=== PATIENT | female | born 1980 | race Caucasian/White ===

== ENCOUNTER 2017-12-03 02:45 | Inpatient (IN) | payer BC ==
[2017-12-03] MEDS: LACTATED RINGER'S 1,000 ML IV ×4 (03:53→17:20)
[2017-12-03] MEDS ORDERED: LIDOCAINE 1% (MPF) 30 ML INJ INJ (04:00)
[2017-12-03] MEDS ORDERED: OXYTOCIN 30 UNITS/LR 500 ML IV ×2 (04:00→14:30)
[2017-12-03] MEDS ORDERED: METHYLERGONOVINE 0.2 MG INJ IM ×2 (04:00→14:30)
[2017-12-03] MEDS ORDERED: CARBOPROST 250 MCG INJ IM ×2 (04:00→14:30)
[2017-12-03] MEDS ORDERED: MISOPROSTOL 200 MCG TAB PR ×2 (04:00→14:30)
[2017-12-03] MEDS ORDERED: BUTORPHANOL 2 MG INJ IV (04:00)
[2017-12-03 04:04] LABS: ADD MAN DIFF? NO
[2017-12-03 04:08] LABS: BASOPHILS % 0.3 % (0.0-2.0); EOSINOPHILS % 0.2 % (0.0-7.0); HEMATOCRIT 40.2 % (37.0-47.0); HEMOGLOBIN 14.3 g/dl (12.0-16.0); LYMPHOCYTES # 1.8 10^3/ul (0.8-2.9); LYMPHOCYTES % 14.2 % (15.0-51.0); MEAN CORPUSCULAR HEMOGLOBIN 33.4 pg (29.0-33.0); MEAN CORPUSCULAR HGB CONC 35.6 g/dl (32.0-37.0); MEAN CORPUSCULAR VOLUME 93.9 fl (82.0-101.0); MONOCYTE # 0.8 10^3/ul (0.3-0.9); MONOCYTES % 6.2 % (0.0-11.0); NEUTROPHIL # 10.1 10^3/ul (1.6-7.5); NEUTROPHILS % 78.6 % (39.0-77.0); PLATELET COUNT 173 10^3/UL (140-415); RED BLOOD COUNT 4.28 10^6/ul (4.20-5.40)
[2017-12-03 04:08] LABS: WHITE BLOOD COUNT 12.9 10^3/ul (4.8-10.8)
[2017-12-03 04:48] LABS: INR 0.75; PROTIME 10.6 Sec (11.9-14.9); PT RATIO 0.8
[2017-12-03 04:49] LABS: PARTIAL THROMBOPLASTIN TIME 25.8 Sec (25.0-35.0)
[2017-12-03] MEDS: AMPICILLIN 2 GM/NS (PMX) 100 ML IV (04:52)
[2017-12-03 04:57] LABS: HEPATITIS B SURFACE ANTIGEN NEGATIVE (NEGATIVE)
[2017-12-03] MEDS ORDERED: FENTAnyl 2MCG/ML-ROPIV 0.2% 100 ML (04:57)
[2017-12-03 05:23] LABS: HIV 1&2 ANTIBODY NEGATIVE (NEGATIVE)
[2017-12-03] MEDS ORDERED: NALOXONE (0.4 MG/ML) INJ IV (05:30)
[2017-12-03] MEDS ORDERED: ONDANSETRON 4 MG INJ IV (05:30)
[2017-12-03] MEDS ORDERED: DIPHENHYDRAMINE 50 MG INJ IV (05:30)
[2017-12-03] MEDS: AMPICILLIN 1 GM/NS (PMX) 50 ML IV (08:28)
[2017-12-03] MEDS: MINERAL OIL LIGHT 10 ML VIAL TOP (12:00)
[2017-12-03] MEDS: FENTAnyl 2MCG/ML-ROPIV 0.2% 100 ML BAG EPI (13:05)
[2017-12-03] MEDS: IBUPROFEN 600 MG TAB PO ×2 (13:36→17:25)
[2017-12-03] MEDS: OXYTOCIN 30 UNITS/LR 500 ML IV ×2 (13:41)
[2017-12-03] MEDS ORDERED: OXYCODONE/ASPIRIN (4.88/325) TAB PO (14:30)
[2017-12-03] MEDS ORDERED: ZOLPIDEM 5 MG TAB PO (14:30)
[2017-12-03] MEDS: LANOLIN 7 GM TUBE TOP (17:25)
[2017-12-03] MEDS: BENZOCAINE 20% 56 ML SPRAY TOP (17:25)
[2017-12-03] MEDS: WITCH HAZEL/GLYCERIN PAD PR (17:26)
[2017-12-03] MEDS: SENNA/DOCUSATE NA (8.6MG/50MG) TAB PO (21:57)
[2017-12-03] MEDS: OXYCODONE/ASPIRIN (4.88/325) TAB PO (22:05)
[2017-12-03 23:16] LABS: RAPID PLASMA REAGIN NONREACTIVE (NR)
[2017-12-04] MEDS: IBUPROFEN 600 MG TAB PO ×4 (00:04→18:02)
[2017-12-04] MEDS: LACTATED RINGER'S 1,000 ML IV (01:30)
[2017-12-04] MEDS: OXYCODONE/ASPIRIN (4.88/325) TAB PO ×3 (03:14→22:44)
[2017-12-04] MEDS: SENNA/DOCUSATE NA (8.6MG/50MG) TAB PO ×2 (08:36→22:43)
[2017-12-04 10:13] LABS: ADD MAN DIFF? NO
[2017-12-04 10:18] LABS: BASOPHILS % 0.2 % (0.0-2.0); EOSINOPHILS # 0.1 10^3/ul (0.0-0.5); EOSINOPHILS % 0.7 % (0.0-7.0); HEMATOCRIT 34.1 % (37.0-47.0); HEMOGLOBIN 11.7 g/dl (12.0-16.0); LYMPHOCYTES # 1.6 10^3/ul (0.8-2.9); LYMPHOCYTES % 14.5 % (15.0-51.0); MEAN CORPUSCULAR HEMOGLOBIN 33.1 pg (29.0-33.0); MEAN CORPUSCULAR HGB CONC 34.3 g/dl (32.0-37.0); MEAN CORPUSCULAR VOLUME 96.6 fl (82.0-101.0); MEAN PLATELET VOLUME 9.9 fl (7.4-10.4); MONOCYTE # 0.5 10^3/ul (0.3-0.9); MONOCYTES % 4.3 % (0.0-11.0); NEUTROPHILS % 79.7 % (39.0-77.0); PLATELET COUNT 135 10^3/UL (140-415); RED BLOOD COUNT 3.53 10^6/ul (4.20-5.40); RED CELL DISTRIBUTION WIDTH 13.3 % (11.5-14.5)
[2017-12-04 10:18] LABS: WHITE BLOOD COUNT 11.3 10^3/ul (4.8-10.8)
[2017-12-05] MEDS: IBUPROFEN 600 MG TAB PO ×2 (06:09)
[2017-12-05] MEDS: OXYCODONE/ASPIRIN (4.88/325) TAB PO (08:32)
[2017-12-05] MEDS: SENNA/DOCUSATE NA (8.6MG/50MG) TAB PO (08:32)
[2017-12-05] MEDS: DIPHTH/TET/ACEL PERTUSS (ADULT) 0.5 ML VIAL IM* (08:32)
[2017-12-06 13:32] LABS: RUBELLA ANTIBODY - IGM <20.00 AU/mL
== END 2017-12-05 12:25 | disposition home or self-care (01) | DRG 775 ==
LOC: OBT 02:45 → L-D 02:45 → OBT 03:15 → L-D 03:15 → PP1 14:45
PROC: 10E0XZZ Delivery of Products of Conception, External Approach (ICD-10-PCS; principal; 2017-12-03)
PROC: 0HQ9XZZ Repair Perineum Skin, External Approach (ICD-10-PCS; 2017-12-03)
DX: O48.0 Post-term pregnancy (principal); O99.824 Streptococcus B carrier state complicating childbirth; O70.0 First degree perineal laceration during delivery; Z3A.40 40 weeks gestation of pregnancy; Z37.0 Single live birth
CPT/HCPCS: 62319; 85025; 85610; 85730; 86592; 86703; 86762; 86850; 86900; 86901; 87340; 99464

== ENCOUNTER 2018-03-21 10:48 | Day surgery (SDC) | payer OTHER, BC ==
[2018-03-21] MEDS ORDERED: MIDAZOLAM 1 MG/ML 2 ML INJ (12:23)
[2018-03-21] MEDS ORDERED: FENTAnyl 50 MCG/ML VIAL (12:30)
[2018-03-21] MEDS ORDERED: BUPIVACAINE 0.5%/EPI (SDV) 30 ML INJ (12:33)
[2018-03-21] MEDS ORDERED: LABETALOL HCL 20MG INJ (12:37)
[2018-03-21] MEDS ORDERED: CEFAZOLIN 1 GM INJ (12:47)
[2018-03-21] MEDS ORDERED: DEXAMETHASONE 4 MG/ML 1 ML INJ (12:48)
[2018-03-21] MEDS ORDERED: ACETAMINOPHEN 1000MG/100ML IV 100 ML (12:48)
[2018-03-21] MEDS ORDERED: ROCURONIUM 50 MG INJ (12:48)
[2018-03-21] MEDS ORDERED: ONDANSETRON 4 MG INJ (12:48)
[2018-03-21] MEDS ORDERED: LIDOCAINE 2% (SDV) 5 ML INJ (12:48)
[2018-03-21] MEDS ORDERED: PROPOFOL 20 ML (12:48)
[2018-03-21] MEDS ORDERED: KETOROLAC 30 MG INJ (12:50)
[2018-03-21] MEDS ORDERED: SUGAMMADEX SODIUM 200 MG/2 ML VIAL IV (12:51)
[2018-03-21] MEDS: BUPIVACAINE 0.5% (MPF) 30 ML INJ INJ (13:01)
[2018-03-21] MEDS ORDERED: FENTAnyl 50 MCG/ML VIAL IV ×2 (13:30)
[2018-03-21] MEDS ORDERED: MIDAZOLAM 1 MG/ML 2 ML INJ IV (13:30)
[2018-03-21] MEDS ORDERED: EPHEDrine SULFATE 50 MG/5 ML SYG IV (13:30)
[2018-03-21] MEDS ORDERED: DIPHENHYDRAMINE 50 MG INJ IV (13:30)
[2018-03-21] MEDS ORDERED: HYDROmorphONE 1 MG/5 ML IV SYRINGE IV ×2 (13:30)
[2018-03-21] MEDS: HYDROmorphONE 1 MG/5 ML IV SYRINGE IV (13:30)
[2018-03-21] MEDS ORDERED: LABETALOL HCL 20MG INJ IV (13:30)
[2018-03-21] MEDS ORDERED: ONDANSETRON 4 MG INJ IV (13:30)
[2018-03-21] MEDS ORDERED: OXYCODONE/ACETAMINOPHEN (5/325) TAB PO ×2 (13:30)
[2018-03-21] MEDS ORDERED: MEPERIDINE 25 MG INJ IV (13:30)
[2018-03-21] MEDS ORDERED: hydrALAzine 20 MG INJ IV (13:30)
[2018-03-21] MEDS: KETOROLAC 30 MG INJ IV (13:31)
[2018-03-21] MEDS: FENTAnyl 50 MCG/ML VIAL IV (13:31)
== END 2018-03-21 14:30 | disposition home or self-care (01) ==
LOC: SDS 10:48
DX: Z30.2 Encounter for sterilization (principal)
CPT/HCPCS: 58670